=== PATIENT | male | born 1990 | race Caucasian/White ===

== ENCOUNTER → 2021-07-23 10:57 | Outpatient (BNVA) | payer OTHER, SELFPAY | PROVIDERS: PCP Family Medicine Adult Medicine; Visit Provider Nurse Practitioner | DX: J32.9 Chronic sinusitis, unspecified (principal); B34.9 Viral infection, unspecified | CPT/HCPCS: 87400 ==

== ENCOUNTER 2021-10-10 16:11 | Emergency (ER) | payer OTHER, SELFPAY ==
[2021-10-10 16:16] VITALS: BP 126/87; PULSE 68; RESP 16; TEMP 36.6; O2SAT 94
--- NOTE | 2021-10-10 16:23 | ECG_ITS ---
[facility] Test Date: 2021-10-10 Pat Name: Jose Anaya Department: Room: Gender: Male Seat Maker: : 1990 Requested By: Tonya Ahumada Order Number: [id number] Mishel MD: Augusto Chaves M.D. Measurements Intervals [place] Rate: 72 P: 31 ID: [id number] QRS: 4 QRSD: 107 T: 15 QT: 404 QTc: 443 Interpretive Statements SINUS RHYTHM POSSIBLE RIGHT VENTRICULAR CONDUCTION DELAY [RSR (QR) IN V1/V2] MODERATE VOLTAGE CRITERIA FOR LVH, CONSIDER NORMAL VARIANT [MEETS CRITERIA IN ONE OF: R(aVL), S(V1), R(V5), R(V5/V6)+S(V1)] No previous ECG available for comparison Electronically Signed On 10-10-2021 19:40:24 CDT by Augusto Chaves M.D. [id number]
[2021-10-10 16:24] VITALS: BP 136/99; PULSE 70; RESP 21; O2SAT 95
--- NOTE | 2021-10-10 16:48 | ED_ITS ---
HPI - General Adult General: Chief complaint: Dizziness Stated complaint: Nausia, Dizziness, sweating alot Time Seen by Provider: 10/10/21 16:23 History of Present Illness: 31-year-old male with history of vertigo on meclizine 12.5 mg every 6 hours presenting to the emergency room for evaluation of worsening vertigo symptoms and right-sided tinnitus x2 hours. Symptoms are sudden onset. Has been persistent for 2 hours. Patient reports 1 episode of emesis. No other focal neurological deficits. Patient de denies any chest pain, shortness of palpitation nausea/vomiting, fever/chills abdominal complaints, complaints. He denies any other focal neurological deficit including diplopia, slurring speech, double vision, focal arm or leg weakness. Patient says that in the past that usually takes meclizine and the symptoms improved. However today, patient continues to have persistent symptoms. Onset:2 hrs ago Duration:2 hrs Location:home Severity:moderate Associated symptoms: Deny chest pain, dyspnea, nausea, rash, palpitations or vo miting Review of Systems Const: Denies: fever(s) or chills Eyes: Denies: change in vision ENMT: Reports: other (+R tinnitus); Denies: mouth pain Card: Denies: chest pain or palpitations Resp: Denies: dyspnea or non-productive cough GI: Denies: abdominal pain, nausea, vomiting or diarrhea : Denies: dysuria Musc: Denies: extremity pain Skin/Breast: Denies: rash or new lesions Neuro: Reports: other (+vertigo); Denies: weakness in extremities Psych: Reports: other (Normal mood) Gerald/Lymph: Denies: easy bruising PFSH ED PFSH: Medical History Hx of fracture of skull Laryngitis Muscle tension headache Otitis media Family History Other Dementia Diabetes Hypertension Social History Smoking and tobacco status: current every day smoker smokeless tobacco Second hand smoke exposure: No Alcohol intake: current Alcohol intake frequency: holidays/special occasions only Desire information about alcohol rehabilitation?: No Desire information about substance/drug rehabilitation?: No Marital status: Number of children: 0 Current occupational status: employed Physical Exam Const: COMMON NORMALS: alert HENMT: COMMON NORMALS: atraumatic HEAD & SCALP: atraumatic MOUTH: moist mucous membranes not abnormal Eye: COMMON NORMALS: EOMs intact bilaterally and conjunctivae normal CON JUNCTIVA: Yes conjunctivae normal Neck/C-Spine: COMMON NORMALS: full ROM and supple Resp: COMMON NORMALS: normal respiratory effort and clear to auscultation bilaterally AUSCULTATION: clear to auscultation bilaterally Cardio: COMMON NORMALS: regular rate RATE: regular rate GI: COMMON NORMALS: Soft to palpation and non-tender PALPATION: Yes Soft to palpation Extremity: COMMON NORMALS: full ROM Neuro: SENSORIUM/ORIENTATION: Yes alert MOTOR EXAM: No Abnormal motor strength present and Other motor observations present (no focal motor deficits) OTHER: Mental status? Awake, alert, and oriented to self, year, month, location, and situation.? Following simple axial and appendicular commands.? Has appropriate fund of knowledge, comprehension, and insight.? Able to recall and understands pertinent aspects of medical history and current treatment status.? ? Language? Speech is fluent without word-finding difficulties.? 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 ? Cranial nerves? 2,3,4,6: PERRL, EOMI with no nystagmus. 5: Intact sensation to light touch, symmetric? 7: Smile symmetrical, no facial droop.? 8: Hearing grossly intact.? 9,10: Normal palate movement.? 11: Normal strength in trapezius bilaterally 12: Tongue protrudes midline.? ? Motor examination? Normal bulk & tone. Strength as follows (R/L): Delts (5/5), Biceps (5/5), Triceps (5/5), Wrist ext (5/5), hip flexors (5/5), plantarflexors (5/5), dorsiflexors (5/5). ? Sensation? Light Touch: Grossly intact and equal in upper and lower extremities bilaterally? Romberg: Negative.? Distal joint position sense intact ? Coordination? Xisypc-dc-bfga-finger movements intact without dysmetria or past-pointing.? Rapid fingertaps: preserved amplitude without decriment.? No tremor, myoclonus or truncal ataxia.? ? Gait/stance? Steady, normal narrow base gait with appropriate arm swing and turning.? Tandem gait without hesitation or loss of balance. Psych: COMMON NORMALS: speech normal SPEECH: Yes normal speech MOOD & AFFECT: Yes euthymic mood Course Vital Signs: Vital signs: Vital Signs Temperature 97.8 F 10/10/21 16:16 Pulse Rate 65 10/10/21 17:50 Respiratory Rate 16 10/10/21 17:50 Blood Pressure 123/77 10/10/21 17:50 Pulse Oximetry 98 10/10/21 17:50 MDM - General Adult Medical Decision Making 31-year-old male with a history of vertigo presenting to the emergency room 2 hours of vertigo with right ear tinnitus. On physical exam, patient has no focal neurological deficits. Hemodynamically stable. Patient received 1 L IVF, Ativan and meclizine. Patient is currently symptom-free. He is able to tolerate p.o. without difficulty. Patient is able to ambulate. Have given patient close follow-up with outpatient ENT for further reassessment of veritgo symptoms. Lab work-up was within normal limit. Rx meclizine PRN vertigo Disposition: Discharge. Patient counseled regarding diagnostic impression, treatment plan. Patient given ED strict return precautions to return for c ontinuation, worsening, or development of new symptoms. Instructed to f/u w/ PCP regarding symptoms today. Patient verbalized understanding. Lab Data : 10/10/21 17:00 10/10/21 17:00 Laboratory Results WBC 9.0 10^3/uL (4.0-10.0) 10/10/21 17:00 RBC 6.08 10^6/uL (4.1-5.3) H 10/10/21 17:00 Hgb 16.7 g/dL (11.7-16.6) H 10/10/21 17:00 Hct 49.5 % (42.0-52.0) 10/10/21 17:00 MCV 81.4 fl (80-94) 10/10/21 17:00 MCH 27.5 pg (28.0-34.0) L 10/10/21 17:00 MCHC 33.7 g/dL (30.0-36.0) 10/10/21 17:00 RDW 13.2 % (12.1-15.1) 10/10/21 17:00 Plt Count 237 10^3/cmm (130-400) 10/10/21 17:00 MPV 11.6 fL (7.4-10.4) H 10/10/21 17:00 Neut % (Auto) 82.0 % 10/10/21 17:00 Lymph % (Auto) 9.0 % 10/10/21 17:00 Franklin % (Auto) 7.0 % 10/10/21 17:00 Eos % (Auto) 0.8 % 10/10/21 17:00 Baso % (Auto) 0.6 % 10/10/21 17:00 Neut # (Auto) 7.41 10^3/uL (1.8-7.7) 10/10/21 17:00 Lymph # (Auto) 0.8 10^3/uL (0.8-4.8) 10/10/21 17:00 Franklin # (Auto) 0.6 10^3/uL (0.2-0.9) 10/10/21 17:00 Eos # (Auto) 0.1 10^3/uL (0.0-0.8) 10/10/21 17:00 Baso # (Auto) 0.1 10^3/uL (0.0-0.1) 10/10/21 17:00 Nucleated RBC % (auto) 0 % 10/10/21 17:00 Nucleated RBCs # 0.0 /100WBC 10/10/21 17:00 Sodium 139 mmol/L (136-145) 10/10/21 17:00 Potassium 4.2 mmol/L (3.5-5.1) 10/10/21 17:00 Chloride 103 mmol/L (98-107) 10/10/21 17:00 Carbon Dioxide 25 mmol/L (22-29) 10/10/21 17:00 Anion Gap 15.2 (5-19) 10/10/21 17:00 BUN 18 mg/dL (6-20) 10/10/21 17:00 Creatinine 0.9 mg/dL (0.7-1.2) 10/10/21 17:00 GFR Calculation 99.8 mL/min (90-130) 10/10/21 17:00 Glucose 106 mg/dL (65-115) 10/10/21 17:00 Calculated Osmolality 290 mOsm/kg (285-295) 10/10/21 17:00 Calcium 9.7 mg/dL (8.5-10.5) 10/10/21 17:00 Total Bilirubin 0.6 mg/dL (0.15-1.2) 10/10/21 17:00 AST 32 U/L (0-40) 10/10/21 17:00 ALT 59 U/L (0-41) H 10/10/21 17:00 Alkaline Phosphatase 153 IU/L (40-130) H 10/10/21 17:00 Total Protein 7.6 g/dL (6.6-8.7) 10/10/21 17:00 Albumin 5.0 g/dL (3.5-5.2) 10/10/21 17:00 Globulin 2.6 g/dL (1.3-4.6) 10/10/21 17:00 Lipase 20 U/L (13-60) 10/10/21 17:00 Urine Color Yellow (Yellow) 10/10/21 17:30 Urine Appearance Sl hazy (CLEAR) 10/10/21 17:30 Urine pH 6 (5-7) 10/10/21 17:30 Ur Specific Sharon 1.015 (1.005-1.030) 10/10/21 17:30 Urine Protein Neg (Negative) 10/10/21 17:30 Urine Glucose (UA) Norm (Normal) 10/10/21 17:30 Urine Ketones Negative (Negative) 10/10/21 17:30 Urine Blood Neg (Negative) 10/10/21 17:30 Urine Nitrate Negative (Negative) 10/10/21 17:30 Urine Bilirubin Neg (Negative) 10/10/21 17:30 Urine Urobilinogen 1 mg/dL (Negative) H 10/10/21 17:30 Ur Leukocyte Esterase Negative (Negative) 10/10/21 17:30 Urine RBC Rare /hpf (0-2) 10/10/21 17:30 Urine WBC 0-4 /hpf (0-5) H 10/10/21 17:30 Ur Squamous Epith Cells Rare /hpf (0-5) 10/10/21 17:30 Amorphous Sediment 2+ /hpf 10/10/21 17:30 Urine Bacteria Trace /hpf (NONE) 10/10/21 17:30 Urine Mucus Trace /hpf 10/10/21 17:30 Salicylates 0.6 mg/dL (3-10) L 10/10/21 17:00 Acetaminophen < 5.0 ug/mL (10-30) L 10/10/21 17:00 Discharge Plan Discharge Patient Disposition: Home Clinical Impression: Vertigo, Nausea and vomiting Condition: Stable Prescriptions: New meclizine 25 mg tablet,chewable 25 mg PO .q8hr PRN (Reason: vertigo) 5 Days Qty: 15 0RF No Action famotidine [Acid Adoption Coordinator (famotidine)] 20 mg tablet 20 mg PO ONCE 0RF meclizine 12.5 mg tablet 12.5 mg PO .q6hr PRN (Reason: dizziness or vertigo) Qty: 30 0RF ondansetron 4 mg Tablet,Disintegrating 4 mg PO Q6H PRN (Reason: Nausea) 0RF Discharge Orders: Discharge ED (Routine); Ordered 10/10/21 Ordered By: Tonya Ahumada Referrals: Kye Murray MD [Primary Care Provider] - Discharge Diet: Advance as tolerated Discharge Activity: Increase activity as tolerated Patient Instructions: Motion Sickness (ED), Dizziness (ED) Activity Restrictions/Additional Instructions: Our counter caser will have you follow-up with ENT in the next few days for vertigo. You would be expected to have a phone call with our counter caser who will put you on the schedule. You can expect a call from us in the next 2-3 da ys. If you don't hear from us, call us back in the emergency room at [phone]. [address] not drive and take meclizine at the same time. Come back to the emergency have any new or concerning complaints. 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
[2021-10-10 17:10] LABS: Basophils # 0.1 10^3/uL (0.0-0.1); Basophils % 0.6 %; Eosinophils # 0.1 10^3/uL (0.0-0.8); Eosinophils % 0.8 %; Hematocrit 49.5 % (42.0-52.0); Hemoglobin 16.7 g/dL (11.7-16.6); Lymphocytes # 0.8 10^3/uL (0.8-4.8); Mean Corpuscular HGB Conc 33.7 g/dL (30.0-36.0); Mean Corpuscular Hemoglobin 27.5 pg (28.0-34.0); Mean Corpuscular Volume 81.4 fl (80-94); Mean Platelet Volume 11.6 fL (7.4-10.4); Monocytes # 0.6 10^3/uL (0.2-0.9); Neutrophils # 7.41 10^3/uL (1.8-7.7); Nucleated Red Blood Cells % 0 %; Platelet Count 237 10^3/cmm (130-400); Red Blood Count 6.08 10^6/uL (4.1-5.3); Red Cell Distribution Width 13.2 % (12.1-15.1)
[2021-10-10] MEDS: sodium chloride 0.9% 1,000 ML 999 ML IV (17:16)
[2021-10-10] MEDS: meclizine 25 mg tablet 50 MG PO (17:16)
[2021-10-10] MEDS: LORazepam 1 mg Tablet PO (17:16)
[2021-10-10 17:29] LABS: Alanine Aminotransferase 59 U/L (0-41); Alkaline Phosphatase 153 IU/L (40-130); Anion Gap 15.2 (5-19); Aspartate Amino Transferase 32 U/L (0-40); Blood Urea Nitrogen 18 mg/dL (6-20); Calcium 9.7 mg/dL (8.5-10.5); Carbon Dioxide 25 mmol/L (22-29); Chloride 103 mmol/L (98-107); Globulin 2.6 g/dL (1.3-4.6); Glomerular Filtration Rate 99.8 mL/min (90-130); Glucose 106 mg/dL (65-115); Lipase 20 U/L (13-60); Osmolality Calculated 290 mOsm/kg (285-295); Potassium 4.2 mmol/L (3.5-5.1); Salicylate 0.6 mg/dL (3-10); Sodium 139 mmol/L (136-145); Total Bilirubin 0.6 mg/dL (0.15-1.2); Total Protein 7.6 g/dL (6.6-8.7)
[2021-10-10 17:30] LABS: Acetaminophen < 5.0 ug/mL (10-30)
[2021-10-10 17:48] LABS: Add Urine Microscopic? YES; Bilirubin Urine Neg (Negative); Blood Urine Neg (Negative); Glucose Urine UA Norm (Normal); Ketones Urine Negative (Negative); Leukocyte Esterase Urine Negative (Negative); Nitrate Urine Negative (Negative); Protein Urine Neg (Negative); Specific Gravity, Urine 1.015 (1.005-1.030); Urine Appearance SL Hazy (CLEAR); Urine Color Yellow (Yellow); Urobilinogen Urine 1 mg/dL (Negative); pH Urine 6 (5-7)
[2021-10-10 17:49] LABS: Amorphous Sediment Urine 2+ /hpf; Bacteria Urine TRACE /hpf; Mucus Urine TRACE /hpf; RBC Urine RARE /hpf (0-2); Squamous Epithelial Cell Urine RARE /hpf (0-5); WBC Urine 0-4 /hpf (0-5)
[2021-10-10] MEDS: ketorolac 30 mg/mL INJ IVP (17:49)
[2021-10-10 17:50] VITALS: BP 123/77; PULSE 65; RESP 16; O2SAT 98
[2021-10-10 17:50] LABS: Add Urine Culture? No
[2021-10-10 18:23] VITALS: BP 124/77; PULSE 67; RESP 16; O2SAT 95
== END 2021-10-10 18:25 | disposition home or self-care (01) ==
PROVIDERS: Emergency Provider Emergency Medicine; PCP Family Medicine Adult Medicine
DX: R42 Dizziness and giddiness (principal); R11.2 Nausea with vomiting, unspecified
CPT/HCPCS: 80053; 80307; 81001; 83690; 85025; 93005; 96374; 99284; J1885; J7030; J8597

== ENCOUNTER 2021-11-27 10:45 | Outpatient (CLI) | payer OTHER, SELFPAY ==
[2021-11-27 12:04] LABS: Side 1 27; Sperm Count 27.5 mill/mL (40-160)
[2021-11-27 12:05] LABS: Side 2 28
[2021-11-27 12:06] LABS: Side WITHIN 10% 4; Sperm Immotility 40 % (50-60); Sperm Non-Progressive Motility 10 % (5-10); Sperm Progressive Motility 50 % (31-34); Viscosity Semen High Viscosity; Volume Semen 2.5 mL (2-5)
[2021-11-27 12:07] LABS: Pathology Referral Yes
== END 2021-11-27 10:46 | disposition home or self-care (01) ==
PROVIDERS: PCP Family Medicine Adult Medicine; Visit Provider Obstetrics & Gynecology
DX: N46.9 Male infertility, unspecified (principal)
CPT/HCPCS: 80503; 89320

== ENCOUNTER → 2022-01-23 12:48 | Outpatient (BNVA) | payer OTHER, SELFPAY | PROVIDERS: PCP Family Medicine Adult Medicine; Visit Provider Emergency Medicine | DX: J02.9 Acute pharyngitis, unspecified (principal) | CPT/HCPCS: 87880 ==

== ENCOUNTER 2025-05-13 13:41 | Emergency (ER) | payer OTHER, SELFPAY ==
[2025-05-13 13:55] VITALS: BP 141/94; PULSE 73; RESP 18; TEMP 36.4; O2SAT 98; BMI 37.9
--- NOTE | 2025-05-13 14:17 | ED_ITS ---
HPI - Dizziness General: Chief Complaint: Dizziness Stated Complaint: Dizzy N/V Ringing in ear R ear can't hear Time Seen by Provider: 05/13/25 14:02 History of Present Illness: HPI Narrative: Patient is 34-year-old gentleman diagnosed with M?ni?re's disease 3 years ago that presents with dizziness, nausea, vomiting. Context: Patient states he has a attack like this approximately every year. He was diagnosed with M?ni?re's 3 years ago. He has a spinning sensation vertigo, ringing in his right ear, he cannot hear well out of his right ear, and fullness. This has been going on and coming on for a week, however worse the last 2-4 hours. He had nausea, and vomiting in triage. He has his head covered, and is careful to move as to not have nausea and vomiting. He has current nausea. He has emesis in his eason. Patient voices he just wants to get to the other side of this. Associated symptoms: Reports change in hearing, headache(s) (associated with ears), nausea, tinnitus and vomiting; Denies chest pain, chills, diaphoresis, nasal congestion or palpitations Associated neuro symptoms: Deny numbness in extremities Related Data Home Medications ?Medication ?Instructions ?Recorded ?Confirmed acetaminophen 500 mg tablet 1,000 mg PO QID PRN Fever Or Pain 05/13/25 05/13/25 (Tylenol Extra Strength) famotidine 20 mg tablet 40 mg PO DAILY 05/13/2504/15 ibuprofen 200 mg tablet (Advil) 1,000 mg PO Q6H PRN Fe mir Or Pain 05/13/25 05/13/25 Previous Rx's ?Medication ?Instructions ?Recorded meclizine 25 mg tablet 25 mg PO TID PRN dizziness # 30 tabs 05/13/25 ondansetron 4 mg disintegrating 4 mg PO Q8H PRN nausea and 05/13/25 tablet vomiting 4 days #20 tabs Allergies Allergy/AdvReac Type Severity Reaction Status Date / Time amoxicillin Allergy Unknown Verified 05/13/25 14:01 Penicillins Allergy Unknown Verified 05/13/25 14:01 Sulfa (Sulfonamide Allergy Unknown Verified 05/13/25 14:01 Antibiotics) Review of Systems General: Reports: 10 or more systems reviewed and unremarkable except in HPI and below Const: Denies: fever(s), chills, body aches, fatigue or diaphoresis Eyes: Denies: change in vision or eye discharge ENMT: Reports: ear or mastoid pain, change in hearing and tinnitus; Denies: throat pain, odynophagia, hoarseness, mouth pain, nasal discharge, nasal congestion or post nasal drip Card: Denies: chest pain, palpitations, irregular heart rhythm or swelling of feet/ankles Resp: Denies: dyspnea, productive cough, non-productive cough or wheezing GI: Reports: nausea and vomiting; Denies: abdominal pain or diarrhea : Denies: flank pain or difficulty urinating Musc: Denies: neck pain or back pain Skin/Breast: Denies: rash or pruritus Neuro: Reports: headache(s) (associated with ears); Denies: numbness in extremities or weakness in extremities Psych: Denies: anxiety or depression PFS ED PFSH: Medical History (Updated 05/13/25 @ 15:46 by DINORAH Ortiz) Meniere's disease Infection of tooth Hx of fracture of skull Family History Other Dementia Diabetes Hypertension Social History Smoking and tobacco/nicotine status: never used tobacco/nicotine Second hand smoke exposure: No Alcohol intake: current Alcohol intake frequency: holidays/special occasions only Substance/Drug Use: never Marital status: Number of children: 0 Current occupational status: employed Physical Exam Const: COMMON NORMALS: no acute distress, patient oriented x3, alert and well nourished GENERAL APPEARANCE: cooperative and well hydrated HENMT: COMMON NORMALS: normocephalic, atraumatic, external ears normal, EAC's normal, TM's normal bilaterally and Normal external nose present HEAD & SCALP: normocephalic and atraumatic FACE & SINUS: sinus tenderness NOSE: Normal external nose present and Abnormal mucous membranes and turbinates present erythematous EXTERNAL EAR: Yes external ears normal EXTERNAL AUDITORY CANAL: EAC's normal TYMPANIC MEMBRANE: TM's normal bilaterally MOUTH: Abnormal oral and palatal mucosa present other (dry oral mucosa) THROAT: posterior oropharynx abnormal erythema Eye: COMMON NORMALS: EOMs intact bilaterally and conjunctivae normal CONJUNCTIVA: Yes conjunctivae normal SCLERA: sclerae normal Lymph: LYMPHATIC: no lymphadenopathy noted Resp: COMMON NORMALS: normal respiratory effort and clear to auscultation bilaterally EFFORT & INSPECTION: Yes symmetric chest movement and No respiratory distress AUSCULTATION: clear to auscultation bilaterally Cardio: COMMON NORMALS: regular rate and regular rhythm RATE: regular rate RHYTHM: regular rhythm GI: COMMON NORMALS: Normal to inspection, nondistended, normoactive bowel sounds present : COMMON NORMALS: Yes no CVA tenderness BLADDER/KIDNEY EXAM: Yes no CVA tenderness Back/Pelvis: COMMON NORMALS: no CVA tenderness Neuro: COMMON NORMALS: patient oriented x3 SENSORIUM/ORIENTATION: Yes alert GAIT: Yes Normal gait present Psych: COMMON NORMALS: cooperative, normal affect and speech normal SPEECH: Yes normal speech Skin: RASHES: no rashes Course Reevaluation(s): Reevaluation #1: michelle better Vital Signs: Vital signs: Vital Signs Temperature 97.5 F L 05/13/25 13:55 Pulse Rate 63 05/13/25 15:35 Respiratory Rate 18 05/13/25 13:55 Blood Pressure 141/94 05/13/25 13:55 Pulse Oximetry 99 05/13/25 15:35 Oxygen Delivery Me thod Room Air 05/13/25 15:35 MDM - Dizziness Medical Decision Making Patient is 34-year-old gentleman with M?ni?re's disease, with severe nausea, vomiting, and dizziness. He feels like he is spinning and less he holds very still. He has fullness in his right ear, cannot hear out of his right ear. Will give IV fluids given his dry oromucosa, diphenhydramine, dexamethasone, and Compazine and reassess Medical Records I reviewed the patient's medical records. No radiology studies performed this visit Discharge Plan Discharge Patient Disposition: Home Clinical Impression: Acute vestibular neuronitis, Meniere's disease, Nausea & vomiting Condition: Stable Prescriptions: New meclizine 25 mg tablet 25 mg PO TID PRN (Reason: dizziness) Qty: 30 0RF Rx Instructions: As needed for motion sickness and dizziness. ondansetron 4 mg tablet,disintegrating 4 mg PO Q8H PRN (Reason: nausea and vomiting) 4 Days Qty: 20 0RF No Action acetaminophen [Tylenol Extra Strength] 500 mg Tablet 1,000 mg PO QID PRN (Reason: Fever Or Pain) famotidine 20 mg Tablet 40 mg PO DAILY ibuprofen [Advil] 200 mg Tablet 1,000 mg PO Q6H PRN (Reason: Fever Or Pain) Discharge Orders: Discharge ED (Routine); Ordered 05/13/25 Ordered By: Sofie Helms Referrals: Kye Murray MD [Primary Care Provider, Family Practice] Discharge Diet: Clear Liquid Discharge Activity: Resume usual activity Patient Instructions: Vertigo (ED), Patient Portal & Toshia Instructions Activity Restrictions/Additional Instructions: - Please call doctor tomorrow for follow-up. Your regular doctor may want to consider additional workup such as MRI not available in the emergency room setting. Please make an appointment for follow-up as well regarding your symptoms today. - At the pharmacy: Meclizine, which is a powerful motion sickness/dizziness medication. Your dosage was sent for 25 mg up to 3 times a day. You can take as much as 50 mg or 2 pills up to 3 times a day. Additionally, Zo lamar/ondansetron is the generic. This is a nausea medication. You may take this every 6-8 hours as needed for nausea. While you are having the nausea and the motion sickness, make sure you utilize a clear liquid diet. Clear liquid diet would include Gatorade/Powerade/tea/coffee without creamer/egg drop soup or broth without the crust. - Return to the ED if you have ongoing symptoms, breathing surgeons of your symptoms, fever greater than 100.4 ?F Thank you for choosing [facility] for your healthcare needs today. You have been screened and evaluated and felt safe for discharge. Health conditions do change or evolve sometimes and as such it is important that you follow up with your Primary Doctor to be re checked, 3-5 days is a general good time frame for follow up. 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
[2025-05-13] MEDS: diphenhydrAMINE 50 mg/mL SDV 1mL IVP (14:29)
[2025-05-13 15:35] VITALS: PULSE 63; O2SAT 99
== END 2025-05-13 16:11 | disposition home or self-care (01) ==
PROVIDERS: Emergency Provider Physician Assistant; PCP Family Medicine Adult Medicine
DX: H81.21 Vestibular neuronitis, right ear (principal); H81.01 Meniere's disease, right ear; R11.2 Nausea with vomiting, unspecified
CPT/HCPCS: 96374; 96375; 99284; J0780; J1100; J1200; J7120